=== PATIENT | male | born 1995 | race Hispanic/Latino ===

== ENCOUNTER 2018-05-29 12:47 | Emergency (ER) | payer BC ==
[2018-05-29] MEDS ORDERED: DEXAMETHASONE 10 MG/ML VIAL ONE (13:55)
[2018-05-29] MEDS ORDERED: NA CHLORIDE 0.9% 1,000 ML ONE (13:56)
[2018-05-29 14:12] LABS: Absolute Lymphocytes (CBC) 2.6 K/uL (0.7-4.9); Absolute Monocytes 1.4 K/uL (0.1-1.3); Absolute Neutrophil 11.7 K/uL (1.8-8.0); Basophils % 0.5 % (0-1.3); Eosinophils % 0.6 % (0-4.4); Hematocrit 47.6 % (39.6-49.0); Lymphocytes % 16.2 % (15.3-44.8); MPV 10.7 fL (7.6-11.3); Monocytes % 8.6 % (3.3-12.3); RBC Red Blood Cell Count 5.41 M/uL (4.33-5.43)
[2018-05-29 14:27] LABS: Potassium 4.2 mmol/L (3.5-5.1)
--- NOTE | 2018-05-29 15:06 | RAD REPORT ---
EXAM DESCRIPTION: CT - Soft Tissue Neck W/Contr - 05/29/2018 2:45 pm CLINICAL HISTORY: Throat pain, left-sided jaw and ear pain TECHNIQUE: During dynamic enhancement using 100 milliliters nonionic IV contrast, axial 5 millimeter thick images of the neck were obtained. All CT scans are performed using dose optimization technique as appropriate and may include automated exposure control or mA/KV adjustment according to patient size. FINDINGS: Left tonsil is abnormally enlarged and contains a 19 millimeter rounded low-density focus. This is the appearance of a peritonsillar abscess. Airway is narrowed. There is reactive left-sided lymphadenopathy. No necrotic left-sided lymph node. Right tonsil and adenoid tissue within normal [place] its. No tongue base abnormality. Left-side of the soft palate is thickened and edematous is part of t he overall inflammatory process. This extends into the left lateral margin of the epiglottis. Overall the epiglottis is not grossly thickened or edematous. No laryngeal suspicious finding. Small nonspecific right-sided cervical lymph nodes are present. Mastoid air cells are clear. No globe or orbital content abnormality. No bone or vascular abnormality . IMPRESSION: Approximately 19 millimeter left peritonsillar abscess.
[2018-05-29] MEDS ORDERED: CEFTRIAXONE/SWI 1gm 1 GM/10 ML SYR ONE (15:35)
--- NOTE | 2018-05-29 15:36 | ER ---
Nurse's Notes [facility] Name: Hao Rock Age: 22 yrs Sex: Male : 1995 Arrival Date: 05/29/2018 Time: 12:49 Bed 10 Private MD: Santana Brito Diagnosis: Streptococcal pharyngitis;Peritonsillar abscess Presentation: 05/29 12:51 Presenting complaint: Patient states: throat pain for 4 days, seen at urgent care and la1 they sent me here because my throat was so swollen, airway patient, respirations even and unlabored, pain to left side of jaw and ear. Transition of care: patient was not received from another setting of care. Onset of symptoms was May 29, 2018. Risk Assessment: Do you want to hurt yourself or someone else? Patient reports no desire to harm self or others. Initial Sepsis Screen: Does the patient meet any 2 criteria? No. Patient's initial sepsis screen is negative. Does the patient have a suspected source of infection? No. Patient's initial sepsis screen is negative. Care prior to arrival: None. 12:51 Method Of Arrival: Ambulatory la1 12:51 Acuity: MAGDA 3 la1 Historical: - Allergies: 12:53 No Known Allergies; la1 - Home Meds: 12:53 None [Active]; la1 - PMHx: 12:53 None; la1 - PSHx: 12:53 nose; la1 - Immunization history:: Adult Immunizations up to date. - Social history:: Smoking status: Patient/guardian denies using tobacco. - Ebola Screening: : No symptoms or risks identified at this time. Screenin:01 Abuse screen: Denies threats or abuse. Denies injuries from another. Nutritional hb screening: No deficits noted. Tuberculosis screening: No symptoms or risk factors identified. Fall Risk None identified. Assessment: 13:45 General: Appears in no apparent distress. Behavior is calm, cooperative. Pain: Pain hb currently is 7 out of 10 on a pain scale. Neuro: Level of Consciousness is awake, alert, obeys commands, Oriented to person, place, time, situation. Cardiovascular: Capillary refill < 3 seconds Patient's skin is warm and dry. Respiratory: Airway is patent Respiratory effort is even, unlabored, Respiratory pattern is regular, symmetrical, Breath sounds are clear bilaterally. GI: No signs and/or symptoms were reported involving the gastrointestinal system. : No signs and/or symptoms were reported regarding the genitourinary system. EENT: Throat has enlarged tonsils bilaterally. Derm: Skin is intact, is healthy with good turgor. Musculoskeletal: No signs and/or symptoms reported regarding the musculoskeletal system. 14:45 Reassessment: Patient appears in no apparent distress at this time. No changes from hb previously documented assessment. Patient and/or family updated on plan of care and expected duration. Pain level reassessed. Patient is alert, oriented x 3, equal unlabored respirations, skin warm/dry/pink. 15:43 Reassessment: Patient appears in no apparent distress at this time. No changes from hb previously documented assessment. Patient and/or family updated on plan of care and expected duration. Pain level reassessed. Patient is alert, oriented x 3, equal unlabored respirations, skin warm/dry/pink. Vital Signs: 12:53 BP 129 / 90; Pulse 97; Resp 16; Temp 97.9; Pulse Ox 98% on R/A; Weight 95.25 kg; Height la1 6 ft. 0 in. (182.88 cm); Pain 7/10; 12:53 Body Mass Index 28.48 (95.25 kg, 182.88 cm) la1 ED Course: 12:49 Patient arrived in ED. as 12:49 Santana Brito MD is Private Physician. as 12:53 Triage completed. la1 12:54 Arm band placed on left wrist. la1 13:07 [facility]C [facility]. kb 13:07 Ran Otero MD is Attending Physician. kb 13:53 Inserted saline lock: 20 gauge in right antecubital area, using aseptic technique. hb Blood collected. 13:57 Peyton Rios, ANNA is Primary Nurse. hb 14:01 Patient has correct armband on for positive identification. Bed in low position. Call hb light in reach. Side rails up X 1. 14:02 Radiology exam delayed due to lab results not completed at this time. (BUN/Creatinine). eh 14:45 CT Soft Tissue Neck W/contr In Process Unspecified. EDMS 15:54 initiated a transfer with Shon at the [facility] transfer center. eb 16:[address] Shelton the ENT business development professional with Ivett DELA CRUZ for patient transfer eb consultation. 16:06 administrative approval given by Shon Parks RN in school suspension coordinator at [facility]/ Dr. Shelton has accepted the patient in transfer/ patient going to room 1643/ report to be called to [phone]. 16:42 No provider procedures requiring assistance completed. Patient transferred, IV remains la1 in place. Administered Medications: 13:57 Drug: NS 0.9% 1000 ml Route: IV; Rate: 100 ml/hr; Site: right antecubital; hb 14:44 Follow up: Response: No adverse reaction; IV Status: Completed infusion hb 13:57 Drug: Decadron - Dexamethasone 10 mg Route: IVP; Site: right antecubital; hb 14:35 Follow up: Response: No adverse reaction hb 15:25 Drug: Rocephin 1 grams Route: IV; Rate: calculated rate; Site: right antecubital; hb 15:30 Follow up: IV Status: Completed infusion hb 15:33 Drug: Clindamycin 900 mg Route: IVPB; Infused Over: 30 mins; Site: right antecubital; hb 16:42 Follow up: IV Status: Completed infusion la1 Outcome: 16:06 ER care complete, transfer ordered by MD. mercer 16:42 Transferred by ground EMS to [facility], Transfer form completed. la1 X-rays sent w/ patient. 16:42 Condition: stable 16:42 Instructed on the need for transfer. 16:42 Patient left the ED. la1 Signatures: Dispatcher [employer] EDMS Ivett Castro, ANATOLIY LAGUNA-Gustavo Jerez Amelia as Attema, Lee, RN RN la1 Peyton Rios, ANNA RN Aileen Salvador
--- NOTE | 2018-05-29 15:36 | EDPHYS ---
Physician Documentation [facility] Name: Hao Rock Age: 22 yrs Sex: Male : 1995 Arrival Date: 05/29/2018 Time: 12:49 Bed 10 Private MD: Santana Brito ED Physician Ran Otero HPI: 05/29 15:29 This 22 yrs old Male presents to ER via Ambulatory with complaints of Sore kb Throat, Jaw Pain, Ear Pain. 15:29 The patient presents with sore throat. The patient describes throat pain as constant. kb Onset: The symptoms/episode began/occurred 5 day(s) ago, and became worse 2 day(s) ago. Severity of symptoms: At their worst the symptoms were moderate, in the emergency department the symptoms are unchanged. Modifying factors: The symptoms are alleviated by nothing, the symptoms are aggravated by swallowing, Patient's oral intake status: limited fluid intake, limited food intake, Denies contact with similarly ill indivduals. Associated signs and symptoms: Pertinent positives: fever, Sore throat. The patient has not experienced similar symptoms in the past. The patient has not recently seen a physician. Pt reports pain in throat that radiates to left jaw and ear. Pain started 5 days ago and got worse 2 days ago. . Historical: - Allergies: 12:53 No Known Allergies; la1 - Home Meds: 12:53 None [Active]; la1 - PMHx: 12:53 None; la1 - PSHx: 12:53 nose; la1 - Immunization history:: Adult Immunizations up to date. - Social history:: Smoking status: Patient/guardian denies using tobacco. - Ebola Screening: : No symptoms or risks identified at this time. ROS: 15:29 Neck: Negative for injury, pain, and swelling, Cardiovascular: Negative for chest pain, kb palpitations, and edema, Respiratory: Negative for shortness of breath, cough, wheezing, and pleuritic chest pain, Abdomen/GI: Negative for abdominal pain, nausea, vomiting, diarrhea, and constipation, MS/Extremity: Negative for injury and deformity, Skin: Negative for injury, rash, and discoloration, Neuro: Negative for headache, weakness, numbness, tingling, and seizure. 15:29 Constitutional: Positive for fever, Negative for body aches, chills, fatigue, malaise, poor PO intake, weight loss. 15:29 ENT: Positive for sore throat. Exam: 15:29 Constitutional: This is a well developed, well nourished patient who is awake, alert, kb and in no acute distress. Head/Face: Normocephalic, atraumatic. Neck: Trachea midline, no thyromegaly or masses palpated, and no cervical lymphadenopathy. Supple, full range of motion without nuchal rigidity, or vertebral point tenderness. No Meningismus. Chest/axilla: Normal chest wall appearance and motion. Nontender with no deformity. No lesions are appreciated. Cardiovascular: Regular rate and rhythm with a normal S1 and S2. No gallops, murmurs, or rubs. Normal PMI, no JVD. No pulse deficits. Respiratory: Lungs have equal breath sounds bilaterally, clear to auscultation and percussion. No rales, rhonchi or wheezes noted. No increased work of breathing, no retractions or nasal flaring. Abdomen/GI: Soft, non-tender, with normal bowel sounds. No distension or tympany. No guarding or rebound. No evidence of tenderness throughout. Skin: Warm, dry with normal turgor. Normal color with no rashes, no lesions, and no evidence of cellulitis. MS/ Extremity: Pulses equal, no cyanosis. Neurovascular intact. Full, normal range of motion. Neuro: Awake and alert, GCS 15, oriented to person, place, time, and situation. Cranial nerves II-XII grossly intact. Motor strength 5/5 in all extremities. Sensory grossly intact. Cerebellar exam normal. Normal gait. 15:29 ENT: External ear(s): are unremarkable, Ear canal(s): are normal, TM's: are normal, Nose: is normal, Posterior pharynx: Airway: normal, no evidence of obstruction, Tonsils: enlarged on the left, with erythema, swelling, that is moderate, erythema, that is marked, exudate, is not appreciated. Vital Signs: 12:53 BP 129 / 90; Pulse 97; Resp 16; Temp 97.9; Pulse Ox 98% on R/A; Weight 95.25 kg; Height la1 6 ft. 0 in. (182.88 cm); Pain 7/10; 12:53 Body Mass Index 28.48 (95.25 kg, 182.88 cm) la1 MDM: 13:32 Patient medically screened. sheila 15:31 Data reviewed: vital signs, nurses notes. Data interpreted: Pulse oximetry: on room air kb is 98 %. Interpretation: normal. Counseling: I had a detailed discussion with the patient and/or guardian regarding: the historical points, exam findings, and any diagnostic results supporting the discharge/admit diagnosis, lab results, radiology results, the need to transfer to another facility, for higher level of care, [facility] does not immediately have the required specialist. ED course: Pt and parents educated on need for transfer to a facility that has ENT to drain peritonsillar abscess. They would rather sign out and drive to another facility than be transferred. Mother states they have been transferred in the past and had issues with insurance coverage so they want to check with the insurance company before being sent somewhere else. States "We would rather just sign him out and drive ourselves." Educated on risks and that his airway could become compromised if they do not go today. Report they will go today. . 16:04 ED course: Mother was able to get in touch with insurance and [facility] is covered kb so they think they would like to be transferred. . ED course: Discussed pt condition and diagnostic findings with Dr Shelton, ENT at [facility]. Accepts pt for transfer. . 04 13:39 Order name: CBC with Diff; Complete Time: 14:23 kb 05/29 13:39 Order name: Basic Metabolic Panel; Complete Time: 14:28 kb 05/29 13:39 Order name: Strep; Complete Time: 15:03 kb 05/29 13:39 Order name: CT Soft Tissue Neck W/contr; Complete Time: 15:06 kb 05/29 13:39 Order name: IV Start; Complete Time: 13:57 kb Administered Medications: 13:57 Drug: NS 0.9% 1000 ml Route: IV; Rate: 100 ml/hr; Site: right antecubital; hb 14:44 Follow up: Response: No adverse reaction; IV Status: Completed infusion hb 13:57 Drug: Decadron - Dexamethasone 10 mg Route: IVP; Site: right antecubital; hb 14:35 Follow up: Response: No adverse reaction hb 15:25 Drug: Rocephin 1 grams Route: IV; Rate: calculated rate; Site: right antecubital; hb 15:30 Follow up: IV Status: Completed infusion hb 15:33 Drug: Clindamycin 900 mg Route: IVPB; Infused Over: 30 mins; Site: right antecubital; hb 16:42 Follow up: IV Status: Completed infusion la1 Disposition: 05/29/18 16:06 Transfer ordered to [facility]. Diagnosis are Streptococcal pharyngitis, Peritonsillar abscess. - Reason for transfer: Higher level of care. - Accepting physician is Dr Shelton. - Condition is Stable. - Problem is new. - Symptoms are unchanged. Addendum: 05/31/2018 07:46 Co-signature as Attending Physician, Ran Otero MD I agree with the assessment and c vicente plan of care. Signatures: Dispatcher [employer] EDIvett Rand, ASL INTERPRETER-C ASL INTERPRETER-Ckb Ran Otero MD MD cha Attema, Lee, RN RN la1 Peyton Rios RN RN Corrections: (The following items were deleted from the chart) 05/29 16:06 15:35 05/29/2018 15:35 Patients has left against medical advice. Impression: kb Streptococcal pharyngitis; Peritonsillar abscess. Patient states they are going to Home. Condition is Stable. Follow up: Emergency Department; When: As needed; Reason: Trouble breathing, Worsening of condition. Problem is new. Symptoms are unchanged. kb 16:42 16:06 05/29/2018 16:06 Transfer ordered to [facility]. Diagnosis is la1 Streptococcal pharyngitis; Peritonsillar abscess. Reason for transfer: Higher level of care. Accepting physician is Dr Shelton. Condition is Stable. Problem is new. Symptoms are unchanged. kb
[2018-05-29] MEDS ORDERED: CLINDAMYCIN 900MG/D5W 900 MG/50 ML IVPB IV ONE (15:43)
== END 2018-05-29 16:42 | disposition short-term general hospital (02) ==
LOC: ER 12:47
DX: J02.0 Streptococcal pharyngitis (principal); J36 Peritonsillar abscess
CPT/HCPCS: 36415; 70491; 80048; 85025; 87081; 96361; 96365; 96375; 99285; J0696; J1100; J7030; Q9967

== ENCOUNTER 2018-06-27 21:38 | Emergency (ER) | payer BC ==
--- OUTSIDE RECORDS SUMMARY | 2018-06-27 21:41 | XMS REPORT | Clinical Summary ---
:1995 Author Organization [facility] Address [address] [place] [address] Care Team Providers Name Role Phone Unavailable Primary Care Provider Unavailable Allergies No Known Allergies Medications Medication Sig Dispensed Refills Start Date End Date Status ascorbic acid, Take 500 mg by 0 Active vitamin C, (ASCORBIC mouth daily. ACID WITH ANGELO HIPS) 500 MG tablet multivit,stress Take by mouth. 0 Active formula-zinc (B [id number]-M-[id number]) Tab amoxicillin-clavulana Take 1 tablet by 20 tablet 0 05/29/2018 06/08/2018 te (AUGMENTIN) mouth 2 (two) 875-125 mg per tablet times daily for 10 days. Active Problems Problem Noted Date Peritonsillar abscess 05/29/2018 Encounters Date Type Specialty Care Team Description 05/29/2018 Hospital Encounter General Internal Danial Shelton MD 05/29/2018 Travel after 06/26/2017 Social History Tobacco Use Types Packs/Day Years Used Date Never Smoker Smokeless Tobacco: Never Used Sex Assigned at Date Recorded Not on file Job Start Date Occupation Industry Not on file Not on file Not on file Travel History Travel Start Travel End No recent travel history available. Last Filed Vital Signs Vital Sign Reading Time Taken Blood Pressure 131/73 05/29/2018 8:19 PM CDT Pulse 101 05/29/2018 8:19 PM CDT Temperature 35.9 C (96.7 F) 05/29/2018 8:19 PM CDT Respiratory Rate 18 05/29/2018 8:19 PM CDT Oxygen Saturation 98% 05/29/2018 8:19 PM CDT Inhaled Oxygen Concentration - - Weight 95.3 kg (210 lb) 05/29/2018 8:19 PM CDT Height 182.9 cm (6') 05/29/2018 8:19 PM CDT Body Mass Index 28.48 05/29/2018 8:19 PM CDT Plan of Treatment Not on file Results Not on fileafter 06/26/2017 Insurance Payer Benefit Plan / Subscriber ID Type Phone Address Group BLUE CROSS/BLUE BCBS HMO OS xxxxxxxxxxxx HMO/POS [phone] [address] [place] [address] ([place]) [place] [address] Advance Directives For more information, please contact:[address] [phone] Code Status Date Activated Date Inactivated Comments Full Code 05/29/2018 9:30 PM 05/29/2018 11:52 PM This code status was determined by: Patient
[2018-06-27 22:41] LABS: Absolute Monocytes 0.8 K/uL (0.1-1.3); Absolute Neutrophil 5.9 K/uL (1.8-8.0); Basophils % 0.7 % (0-1.3); Eosinophils % 0.3 % (0-4.4); Hematocrit 45.3 % (39.6-49.0); Lymphocytes % 30.7 % (15.3-44.8); MPV 11.5 fL (7.6-11.3); Monocytes % 7.8 % (3.3-12.3); RBC Red Blood Cell Count 5.15 M/uL (4.33-5.43)
[2018-06-27 22:57] LABS: Potassium 3.7 mmol/L (3.5-5.1)
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
== END 2018-06-28 01:28 | disposition home or self-care (01) ==
LOC: ER 21:38
DX: S06.0X0A Concussion without loss of consciousness, initial encounter (principal); Y04.0XXA Assault by unarmed brawl or fight, initial encounter; Y92.019 Unspecified place in single-family (private) house as the place of occurrence of the external cause; S20.222A Contusion of left back wall of thorax, initial encounter; W10.9XXA Fall (on) (from) unspecified stairs and steps, initial encounter
CPT/HCPCS: 36415; 70450; 70486; 71260; 72125; 74177; 76377; 80048; 85025; 86850; 86900; 86901; 99284; Q9967